=== PATIENT | female | born 1985 | race American Indian/Alaskan Native ===

== ENCOUNTER 2017-10-09 13:09 | Emergency (ER) | payer SELFPAY ==
[2017-10-09 13:10] VITALS: BMI 33.3
[2017-10-09] MEDS ORDERED: Alum-Mag Hydrox-Simethicone Susp (30 mL) PO STA ×2 (13:30→14:19)
[2017-10-09] MEDS ORDERED: Alum-Mag Hydrox-Simethicone Susp (30 mL) ONE ×2 (13:47→14:26)
[2017-10-09 14:09] LABS: BASO # 0.1 K/uL (0.0-0.2); BASO % 0.5 % (0.0-2.0); EOS # 0.2 K/uL (0.0-0.7); EOS % 2.2 % (0.0-4.0); HEMOGLOBIN 13.4 g/dL (11.0-16.0); LYMPH # 1.7 K/uL (1.0-4.3); LYMPH % 14.9 % (20.0-40.0); MEAN CORPUSCULAR HGB CONC 33.3 g/dL (33.0-37.0); MEAN PLATELET VOLUME 7.6 fL (7.2-11.7); MONO % 8.7 % (0.0-10.0); NEUT # 8.4 K/uL (1.8-7.0); NEUT % 73.7 % (50.0-75.0); RBC 4.32 Mil/uL (3.80-5.20); RED CELL DISTRIBUTION WIDTH 13.3 % (11.5-14.5); WHITE BLOOD COUNT 11.3 K/uL (4.8-10.8)
[2017-10-09 14:19] LABS: D DIMER < 200 ng/mlDDU (0-243); INR 0.9; PARTIAL THROMBOPLASTIN TIME 34 SECONDS (21-34); PROTHROMBIN TIME 10.4 SECONDS (9.7-12.2)
[2017-10-09 14:23] LABS: ALB/GLOB RATIO 1.1 (1.0-2.1); ALT/SGPT 13 U/L (9-52); AST/SGOT 29 U/L (14-36); BLOOD UREA NITROGEN 13 mg/dL (7-17); CALCIUM 9.1 mg/dl (8.6-10.4); GFR AFRICAN-AMERICAN > 60; GFR NON-AFRICAN AMERICAN > 60
--- NOTE | 2017-10-09 14:23 | RAD ---
HISTORY: epigastric pain COMPARISON: 05/25/2014 TECHNIQUE: Chest PA and lateral FINDINGS: LUNGS: No active pulmonary disease. PLEURA: No significant pleural effusion identified. No pneumothorax apparent. CARDIOVASCULAR: Normal. OSSEOUS STRUCTURES: No significant abnormalities. VISUALIZED UPPER ABDOMEN: Normal. OTHER FINDINGS: None. IMPRESSION: No active disease.
--- NOTE | 2017-10-09 14:34 | C.PDOC ---
History Of Present Illness 31 y/o female presents to the ED complaining of epigastric discomfort since this morning. Patient took Motrin 800mg x 2 tabs last night for unknown reason and then took another 800mg x 4 tabs this morning. She reports steadily increasing discomfort. Patient brought in by ambulance in moderate distress and appears hyperkinetic lying on stretcher. Denies vomiting, diarrhea, fever, chills. Time Seen by Provider: 10/09/17 13:20 Chief Complaint (Nursing): Chest Pain History Per: Patient History/Exam Limitations: no limitations Onset/Duration Of Symptoms: Days (x1) Current Symptoms Are (Timing): Still Present Past Medical History Reviewed: Historical Data, Nursing Documentation, Vital Signs Vital Signs: Last Vital Signs Temp 98.6 F 10/09/17 15:25 Pulse 95 H 10/09/17 15:25 Resp 20 10/09/17 15:25 BP 175/84 H 10/09/17 15:25 Pulse Ox 100 10/09/17 16:26 - Medical History PMH: Gall Bladder Disease, GERD Denies: Depression Surgical History: Cholecystectomy - [facility] Procedures LAPAROSCOPIC CHOLECYSTECTOMY (06/13/13) Family History: States: Diabetes - Social History Hx Tobacco Use: Yes Hx Alcohol Use: Yes Hx Substance Use: No - Immunization History Hx Tetanus Toxoid Vaccination: No Hx Influenza Vaccination: No Hx Pneumococcal Vaccination: No Review Of Systems Except As Marked, All Systems Reviewed And Found Negative. Constitutional: Negative for: Fever, Chills Gastrointestinal: Positive for: Abdominal Pain. Negative for: Vomiting, Diarrhea Physical Exam - Physical Exam Appears: No Acute Distress, Other (Morbidly obese female) Skin: Normal Color, Warm, Dry Head: Atraumatic, Normacephalic Eye(s): bilateral: Normal Inspection, PERRL, EOMI Oral Mucosa: Moist Neck: Normal, Normal ROM Chest: Symmetrical Cardiovascular: Rhythm Regular, No Murmur Respiratory: Normal Breath Sounds, No Accessory Muscle Use, No Rales, No Rhonchi , No Wheezing Gastrointestinal/Abdominal: Bowel Sounds (active), Soft, No Tenderness, No Guarding, No Rebound Extremity: Bilateral: Atraumatic, Normal Color And Temperature, Normal ROM Neurological/Psych: Oriented x3, Normal Speech ED Course And Treatment - Laboratory Results Result Diagrams: 10/09/17 14:01 10/09/17 14:01 Lab Interpretation: Normal (ua/tox neg.) Urine POC: Negative ECG: Interpreted By Me ECG Rhythm: Sinus Rhythm ECG Interpretation: Normal Rate From EC O2 Sat by Pulse Oximetry: 100 Pulse Ox Interpretation: Normal - Radiology CXR: Interpreted by Me CXR Interpretation: Yes: No Acute Disease, Other (no hiatal hernia noted.) Progress Note: protonix IV, Maalox 30 ml PO x 2 with dramatic improvement of epigastric discomfort. Reevaluation Time: 15:07 Reassessment Condition: Improved Medical Decision Making Medical Decision Making: Impression: gastritis/GERD from overuse of Motrin 800 mg (2 tabs last night and 8 tabs today ) improved with maalox/protonix Plan: Pt is stable for d/c home advised to continue pepcid and maalox and follow up with the clinic for referral to GI cautioned to discard Motrin 800 mg @ home. Disposition Doctor Will See Patient In The: Office Counseled Patient/Family Regarding: Studies Performed, Diagnosis, Need For Followup - Disposition Referrals: [facility] [Outside] Disposition: HOME/ ROUTINE Disposition Time: 15:08 Condition: GOOD Additional Instructions: pepcid 20 mg twice a day for 1 month, then just nightly for tx of GERD Maalox 30 cc's (one tablespoon) 5x today and the next 2 days, then just as needed- directly neutralizes stomach acid and helps stomach lining and esophagus heal. Follow-up in our outpatient Family Practice Clinic- FREE- to consider referral to Gastroenterology as needed in about 1 month NEVER take Motrin 800 mg tabs ever again. It provokes TERRIBLE gastritis and stomach pain. Instructions: Gastritis, Acid Reflux (Gastroesophageal Reflux Disease), Adult ( DC) Forms: [employer] (Yoruba) - POA Present On Arrival: None - Clinical Impression Clinical Impression: Epigastric discomfort - Scribe Statement The provider has reviewed the documentation as recorded by the Scribe (Delfina Al) Provider Attestation: All medical record entries made by the Scribe were at my direction and personally dictated by me. I have reviewed the chart and agree that the record accurately reflects my personal performance of the history, physical exam, medical decision making, and the department course for this patient. I have also personally directed, reviewed, and agree with the discharge instructions and disposition.
[2017-10-09 14:48] LABS: HCG,QUALITATIVE URINE NEGATIVE (NEGATIVE)
[2017-10-09 14:51] LABS: SQUAMOUS EPITHIAL 11 /hpf (0-5); URINE BACTERIA RARE (<OCC); URINE BILIRUBIN NEGATIVE (NEGATIVE); URINE BLOOD 1+ (NEGATIVE); URINE CLARITY Hazy (Clear); URINE COLOR Yellow (YELLOW); URINE GLUCOSE (UA) NORMAL (Normal); URINE LEUKOCYTE ESTERASE NEG Leu/uL (Negative); URINE PROTEIN 1+ mg/dL (NEGATIVE); URINE UROBILINOGEN NORMAL mg/dL (0.2-1.0)
[2017-10-09 14:59] LABS: BARBITURATES, UR NEGATIVE (NEGATIVE); BENZODIAZEPINES, UR NEGATIVE (NEGATIVE); OPIATES, UR NEGATIVE (NEGATIVE); PHENCYCLIDINE, UR NEGATIVE (NEGATIVE)
[2017-10-09 15:25] VITALS: BP 175/84; PULSE 95; RESP 20; TEMP 98.6
[2017-10-09 16:23] VITALS: O2SAT 100
--- NOTE | 2017-10-13 23:02 | CARD ---
APPROVED REPORT EKG Measurement Heart [id number] <Conclusion> Normal sinus rhythm Nonspecific T wave abnormality Abnormal ECG
== END 2017-10-09 15:27 | disposition home or self-care (01) ==
LOC: C.ER 13:09
DX: R10.13 Epigastric pain (principal)
CPT/HCPCS: 71046; 80053; 81001; 83880; 84484; 84703; 85025; 85378; 85610; 85730; 93005; 96374; 99284; C9113; G0480